=== PATIENT | male | born 1960 | race Caucasian/White ===

== ENCOUNTER 2022-01-27 10:56 | Outpatient (CLI) | payer SELFPAY ==
[2022-01-27 13:43] LABS: Albumin* 4.3 g/dL (3.3-5.0); Chloride* 110 mmol/L (96-114)
[2022-01-27 13:44] LABS: Sodium* 140 mmol/L (135-149)
[2022-01-27 13:46] LABS: Alkaline Phosphatase* 72 U/L (40-150); Aspartate Amino Transferase* 30 U/L (12-35); Bilirubin Total* 0.6 mg/dL (0.1-1.5); Blood Urea Nitrogen* 21 mg/dL (7-30); Carbon Dioxide* 25 mmol/L (20-32); Cholesterol* 209 mg/dL (90-199); Creatinine* 0.8 mg/dL (0.5-1.5); Estimated Glomerular Filt Rate 101 ml/min; Glucose* 112 mg/dL (60-115); Total Protein* 6.8 g/dL (6.0-8.3)
[2022-01-27 13:47] LABS: Alanine Aminotransferase* 25 U/L (4-50); HDL Cholesterol* 64 mg/dL (>=40); LDL Cholesterol Calculated 128 mg/dL (<100); Triglycerides* 84 mg/dL (40-149)
[2022-01-27 13:50] LABS: Potassium* 4.3 mmol/L (3.6-5.1)
[2022-01-27 14:13] LABS: PSA Screen* 7.25 ng/mL (0.10-4.00)
== END 2022-01-27 10:57 | disposition home or self-care (01) ==
PROVIDERS: PCP Family Medicine; Visit Provider Family Medicine
DX: Z00.00 Encounter for general adult medical examination without abnormal findings (principal); E78.00 Pure hypercholesterolemia, unspecified; R03.0 Elevated blood-pressure reading, without diagnosis of hypertension; R97.20 Elevated prostate specific antigen [PSA]
CPT/HCPCS: 80053; 80061; 84153

== ENCOUNTER 2022-04-21 11:59 | Outpatient (CLI) | payer SELFPAY ==
[2022-04-21 13:56] LABS: Alanine Aminotransferase* 27 U/L (4-50); Cholesterol* 163 mg/dL (90-199); Triglycerides* 77 mg/dL (40-149)
[2022-04-21 13:57] LABS: HDL Cholesterol* 56 mg/dL (>=40); LDL Cholesterol Calculated 92 mg/dL (<100)
== END 2022-04-21 12:00 | disposition home or self-care (01) ==
PROVIDERS: PCP Family Medicine; Visit Provider Family Medicine
DX: E78.00 Pure hypercholesterolemia, unspecified (principal)
CPT/HCPCS: 80061; 84460

== ENCOUNTER 2023-12-24 13:08 | Outpatient (CLI) | payer OTHER, SELFPAY | END 2023-12-24 13:09 | disposition home or self-care (01) | LOC: LKVREF 13:08 | PROVIDERS: PCP Family Medicine; Visit Provider Family Medicine | DX: Z00.00 Encounter for general adult medical examination without abnormal findings (principal); E78.00 Pure hypercholesterolemia, unspecified; R03.0 Elevated blood-pressure reading, without diagnosis of hypertension | CPT/HCPCS: 80053; 80061 ==

== ENCOUNTER 2024-12-26 10:18 | Outpatient (CLI) | payer OTHER, SELFPAY | END 2024-12-26 10:19 | disposition home or self-care (01) | LOC: LKVREF 10:19 | PROVIDERS: PCP Family Medicine; Visit Provider Family Medicine | DX: Z00.00 Encounter for general adult medical examination without abnormal findings (principal); E78.00 Pure hypercholesterolemia, unspecified | CPT/HCPCS: 80053; 80061 ==